=== PATIENT | male | born 1995 | race Two or more races ===

== ENCOUNTER 2024-10-07 02:02 | Emergency (ER) | payer SELFPAY ==
[2024-10-07 02:36] VITALS: BP 128/79; PULSE 55; RESP 18; TEMP 36; O2SAT 100; BMI 31.2
--- NOTE | 2024-10-07 03:26 | XRR_ITS ---
PROCEDURE INFORMATION: Exam: XR Abdomen Exam date and time: 10/07/2024 3:27 AM Age: 29 years old Clinical indication: Abdominal pain; C/O periumbilical pain. ; Additional info: Abd pain TECHNIQUE: Imaging protocol: Radiologic exam of the abdomen. Views: Frontal supine view of the abdomen. 1 View. COMPARISON: No relevant prior studies available. FINDINGS: Gastrointestinal tract: Stool throughout the colon suggesting constipation. No evidence of obstruction. Bones/joints: Unremarkable. XR/XR KUB portable [id number] IMPRESSION: Constipation.
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
[2024-10-07 03:56] VITALS: BP 110/61; PULSE 58; RESP 16; O2SAT 97
--- NOTE | 2024-10-07 03:56 | PC.NURSE ---
PT REFUSED MEDICATIONS. NURSE EXPLAINED IMPORTANCE AND HOW IT COULD HELP, BUT PT CHOSE TO REFUSE.
== END 2024-10-07 03:51 | disposition home or self-care (01) ==
PROVIDERS: Emergency Provider Emergency Medicine
DX: R10.9 Unspecified abdominal pain (principal)
CPT/HCPCS: 74018; 99283